=== PATIENT | male | born 1995 | race Caucasian/White ===

== ENCOUNTER 2017-04-10 12:26 | Emergency (ER) | payer BC ==
[~2017-04-10] VITALS: Ht 177.8 cm; Wt 63.5 kg
--- NOTE | 2017-04-10 13:10 | ED.ADGEN ---
Adult General Chief Complaint Chief Complaint: SUBSTANCE ABUSE HPI HPI Patient is a 21 year old male who presents with hallucinations, feelings of euphoria and altered sensation after ingesting higher than normal dose of mushrooms earlier this morning. Patient's parents noticed that he is acting differently and contacted EMS. Patient told EMS that he took approximately 10 mg of mushrooms earlier today. The exact time of ingestion is unclear, but it was reported that he test mushrooms 5 hours prior to arrival On ED arrival, patient denies taking any drugs and requests that his information be kept confidential. His pupils are dilated patient appears euphoric. He states that he feels as though his dad because he cannot feel his heart rate denies active hallucinations, denies suicidal ideation, homicidal ideation, depression and paranoia. Denies any chronic medical problems. History is limited due to the patient's clinical condition. Review of Systems Review of Systems Review symptoms as per history of present illness. All other review symptoms are negative. Allergies Allergies Allergies Coded Allergies Type Severity Reaction Last Updated Verified No Known Drug Allergies 04/10/17 No Physical Exam Physical Exam Constitutional: Well developed, well nourished. HENT: Normocephalic, atraumatic, bilateral external ears normal, oropharynx moist, no oral exudates, nose normal. Eyes: Pupils round and dilated, Neck: Normal range of motion. Cardiovascular:Heart rate regular rhythm, no murmur. Lungs & Thorax: Bilateral breath sounds clear to auscultation. Abdomen: Bowel sounds normal, soft, no tenderness. Skin: Warm, dry. Back: No tenderness. Extremities: No tenderness Neurologic: Alert and oriented X to person and place, normal motor function, normal sensory function, no focal deficits noted. Psychologic: Mood, euphoric. Current Patient Data Vital Signs Vital Signs Date Time Temp Pulse Resp B/P (MAP) Pulse Ox O2 Delivery O2 Flow Rate FiO2 04/10/17 14:03 66 19 111/62 (78) 95 Room Air 04/10/17 12:26 98.6 98.6 Lab Values Laboratory Tests Test 04/10/17 13:20 White Blood Count 13.6 x10^3/uL (4.0-11.0) H Red Blood Count 4.96 x10^6/uL (4.30-5.70) Hemoglobin 14.9 g/dL (13.0-17.5) Hematocrit 42.3 % (39.0-53.0) Mean Corpuscular Volume 85 fL (79-100) Mean Corpuscular Hemoglobin 30 pg (25-35) Mean Corpuscular Hemoglobin Concent 35 g/dL (31-37) Red Cell Distribution Width 12.9 % (11.5-14.5) Platelet Count 211 x10^3/uL (140-400) Neutrophils (%) (Auto) 91 % (31-73) H Lymphocytes (%) (Auto) 6 % (24-48) L Monocytes (%) (Auto) 3 % (0-9) Eosinophils (%) (Auto) 0 % (0-3) Basophils (%) (Auto) 0 % (0-3) Neutrophils # (Auto) 12.3 x10^3uL (1.8-7.7) H Lymphocytes # (Auto) 0.8 x10^3/uL (1.0-4.8) L Monocytes # (Auto) 0.4 x10^3/uL (0.0-1.1) Eosinophils # (Auto) 0.0 x10^3/uL (0.0-0.7) Basophils # (Auto) 0.0 x10^3/uL (0.0-0.2) Segmented Neutrophils % 85 % (35-66) H Band Neutrophils % 7 % (0-9) Lymphocytes % 5 % (24-48) L Monocytes % 3 % (0-10) Toxic Granulation Slight Platelet Estimate Adequate (ADEQUATE) Sodium Level 140 mmol/L (136-145) Potassium Level 4.3 mmol/L (3.5-5.1) Chloride Level 104 mmol/L (98-107) Carbon Dioxide Level 24 mmol/L (21-32) Anion Gap 12 (6-14) Blood Urea Nitrogen 13 mg/dL (8-26) Creatinine 0.9 mg/dL (0.7-1.3) Estimated GFR (Cockcroft-Gault) 108.7 BUN/Creatinine Ratio 14 (6-20) Glucose Level 132 mg/dL (70-99) H Calcium Level 9.9 mg/dL (8.5-10.1) Total Bilirubin 0.4 mg/dL (0.2-1.0) Aspartate Amino Transferase (AST) 17 U/L (15-37) Alanine Aminotransferase (ALT) 19 U/L (16-63) Alkaline Phosphatase 84 U/L (46-116) Total Protein 8.6 g/dL (6.4-8.2) H Albumin 4.6 g/dL (3.4-5.0) Albumin/Globulin Ratio 1.2 (1.0-1.7) Urine Opiates Screen Neg (NEG) Urine Methadone Screen Neg (NEG) Urine Barbiturates Neg (NEG) Urine Phencyclidine Screen Neg (NEG) Urine Amphetamine/Methamphetamine Neg (NEG) Urine Benzodiazepines Screen Neg (NEG) Urine Cocaine Screen Neg (NEG) Urine Cannabinoids Screen Pos (NEG) Urine Ethyl Alcohol Neg (NEG) Laboratory Tests 04/10/17 13:20 Laboratory Tests 04/10/17 13:20 EKG EKG [] Radiology/Procedures Radiology/Procedures [] Course & Med Decision Making Course & Med Decision Making Pertinent Labs and Imaging studies reviewed. (See chart for details) Mental status improved with tx. PCP f/u outpatient rehab recommended.] Dragon Disclaimer Dragon Disclaimer This electronic medical record was generated, in whole or in part, using a voice recognition dictation system. QUIN DEMPSEY DO Apr 10, 2017 13:10
[2017-04-10 13:28] LABS: BASO % 0 % (0-3); EOS % 0 % (0-3); HEMATOCRIT 42.3 % (39.0-53.0); HEMOGLOBIN 14.9 g/dL (13.0-17.5); LYMPH # 0.8 x10^3/uL (1.0-4.8); LYMPH % 6 % (24-48); MEAN CORPUSCULAR HEMOGLOBIN 30 pg (25-35); MEAN CORPUSCULAR HGB CONC 35 g/dL (31-37); MEAN CORPUSCULAR VOLUME 85 fL (79-100); MONO % 3 % (0-9); NEUT % 91 % (31-73); PLATELET COUNT 211 x10^3/uL (140-400); RED BLOOD COUNT 4.96 x10^6/uL (4.30-5.70); RED CELL DISTRIBUTION WIDTH 12.9 % (11.5-14.5); WHITE BLOOD COUNT 13.6 x10^3/uL (4.0-11.0)
[2017-04-10 13:35] LABS: CALCIUM 9.9 mg/dL (8.5-10.1); CREATININE 0.9 mg/dL (0.7-1.3); GFR 108.7; POTASSIUM 4.3 mmol/L (3.5-5.1)
[2017-04-10 13:40] LABS: BARBITURATES NEG (NEG); BENZODIAZEPINES NEG (NEG); CANNABINOIDS POS (NEG); COCAINE NEG (NEG); METHADONE NEG (NEG); OPIATES NEG (NEG); PHENCYCLIDINE NEG (NEG)
[2017-04-10 13:41] LABS: ALBUMIN 4.6 g/dL (3.4-5.0); ALBUMIN/GLOBULIN RATIO 1.2 (1.0-1.7); TOTAL BILIRUBIN 0.4 mg/dL (0.2-1.0); TOTAL PROTEIN 8.6 g/dL (6.4-8.2)
[2017-04-10 14:03] VITALS: BP 111/62
[2017-04-10 14:43] LABS: PLT ESTIMATE ADEQUATE (ADEQUATE); TOXIC GRANULATION SLIGHT
--- NOTE | 2017-04-11 11:11 | EKG ---
[facility] [address] [place] [id number] Test Date: 2017-04-10 Test Time: 13:08:43 Pat Name: SUSAN MUSTAFA Department: Room: Gender: M Dancing Teacher: : 1995 Requested By: QUIN DEMPSEY Order Number: [id number] Reading MD: Measurements Intervals [place] Rate: 86 P: 67 MI: 190 QRS: 90 QRSD: 94 T: 66 QT: 334 QTc: 402 Interpretive Statements SINUS RHYTHM LEFT ATRIAL ABNORMALITY ABNORMAL ECG RI6.01 No previous ECG available for comparison
== END 2017-04-10 14:57 | disposition home or self-care (01) ==
LOC: ER 12:26
DX: R44.3 Hallucinations, unspecified (principal)
CPT/HCPCS: 36415; 80053; 80305; 80320; 85007; 85027; 93005; G0481; 99285-25

== ENCOUNTER → 2019-03-16 | Outpatient (CLI) | payer BC ==
--- NOTE | 2019-03-16 16:59 | KCIC ---
Examination: 3 views of the left knee HISTORY: History of left knee pain COMPARISON: None available. FINDINGS: The alignment of the knee joint grossly appears unremarkable. There is no acute fracture or dislocation identified. IMPRESSION: No acute osseous findings. Electronically signed by: Kristian aCstro MD (03/16/2019 4:56 PM) [place] [id number]
== END | disposition home or self-care (01) ==
LOC: KCIC 14:24
PROVIDERS: ATTEND Family Medicine
DX: M25.562 Pain in left knee (principal)
CPT/HCPCS: 73562